=== PATIENT | male | born 1970 | race Caucasian/White ===

== ENCOUNTER 2024-06-01 09:03 | Inpatient (IN) | payer OTHER, SELFPAY ==
[2024-06-01] VITALS (33 sets, daily range): BP systolic 104–171; BP diastolic 36–116; BMI 33.5; BMI 32.6
[2024-06-01] MEDS: CARDIZEM 20 MG IV (05:24)
[2024-06-01] MEDS: CARDIZEM 125 IV ×2 (05:25→22:08)
[2024-06-01] MEDS: NSS 1000 IV (05:39)
[2024-06-01 05:47] LABS: % Basophils 0.6 % (0-2); % Eosinophils 3.1 % (0-6); % Immature Granulocytes 0.6 % (0-0.5); % Neutrophils 44.7 % (42.2-75.2); Absolute Eosinophils 0.2 10^3/uL (0-0.7); Absolute Lymphocytes 1.9 10^3/uL (1.2-3.4); Absolute Monocytes 0.6 10^3/uL (0.1-0.6); Absolute Neutrophils 2.2 10^3/uL (1.4-6.5); Hematocrit 46.3 % (39.0-52.0); Mean Corp Hgb Conc. 36.7 g/dL (33.0-37.0); Mean Corpuscular Hgb 34.1 pg (27.0-31.0); Mean Platelet Volume 9.8 fL (7.4-10.4); Nucleated Red Blood Cells % 0 % (-); Platelet Count 165 10^3/uL (130-400); Red Blood Cell Count 4.98 10^6/uL (4.70-6.10); Red Cell Dist. Width 11.6 % (11.5-14.5); White Blood Cell Count 4.9 10^3/uL (4.8-10.8)
[2024-06-01 06:08] LABS: ALT (SGPT) 138 U/L (0-50); AST (SGOT) 90 U/L (17-59); Albumin 4.3 g/dl (3.5-5.0); Alkaline Phosphatase 118 U/L (38-126); Blood Urea Nitrogen 11 mg/dl (9-20); Carbon Dioxide 18 mmol/L (22-30); Chloride 106 mmol/L (98-107); Estimated Creatinine Clearance > 125 ml/min; Glucose 220 mg/dl (70-99); Potassium 3.6 mmol/L (3.5-5.1); Sodium 142 mmol/L (135-145); Total Bilirubin 0.5 mg/dl (0.2-1.3); Total Protein 7.1 g/dl (6.3-8.2); eGFR > 60.00
[2024-06-01 06:15] LABS: Troponin I 0.013 ng/ml
--- NOTE | 2024-06-01 06:36 | ED.GENMED ---
History of Present Illness
General
Chief Complaint: Heart Rate Problem
Source: patient
Exam Limitations: none
Time Seen by Provider: 06/01/24 06:05
Nursing documentation reviewed up to this point in time: agreed with
History of Present Illness
History of Present Illness:
54-year-old male presents with palpitations fast heart rates, onset few hours ago he is a heavy drinker, states he had quite a bit of alcohol last evening, does not recall ever having fast heart rates previously, no chest pain no shortness of breath
no leg edema denies vomiting, he works in the restaurant industry denies any cocaine or other stimulant use
Past History
Past History
ED Past Medical History: Other (Peptic ulcer disease) and Other (Diverticulitis)
ED Past Surgical History: None
Patient has exhibited threatening behavior?: No
PSI?: No
Social History
Tobacco: Non-smoker
Alcohol: Daily
Drug: None
Personal:
Living: with family
Employment: Employed
Family History
Family History: Hypertension; Negative Diabetes, Early CAD, CAD, Asthma or Cancer
Review of Systems
Review of Systems
All Other Systems: Not applicable
Respiratory: Denies trouble breathing
Cardiac: Reports palpitations; Denies syncope
ABD/GI: Reports no symptoms
Musculoskeletal: Reports no symptoms
Neurological: Reports dizzy
Phy Exam
Physical Exam
Physical Exam:
Physical Exam
General: 54 male looks flushed cooperative
Neck: Lips are dry
Heart: Tachycardic
Lungs: no acute respiratory distress. clear bilaterally no wheezing
Abdomen: Nontender
Neuro: alert and oriented. no focal neurological deficits
Skin: no rash
Psychiatric: well kept. interactive and cooperative
Extremities: no edema.
Course
Orders/Labs/Results
Orders:
Orders
06/01/24 05:05
Electrocardiogram (*1) Urgent
Reason for Study: Tachycardia
EKG- Treatment ONCE
06/01/24 05:22
Diltiazem 125 mg/125 ml Nss [Cardizem] 125 mg in 125 ml .ROUTE .STK-MED
Diltiazem HCl [Cardizem] 25 mg .ROUTE .STK-MED ONE
06/01/24 05:24
Diltiazem HCl [Cardizem] 20 mg IV NOW STA
06/01/24 05:27
Complete Blood Count/With Diff Urgent
Comprehensive Metabolic Panel Urgent
Glycohemoglobin (HgbA1c) Urgent
Magnesium Urgent
Comment: ADD ON
Troponin I Urgent
06/01/24 05:30
Diltiazem 125 mg/125 ml Nss [Cardizem] 125 mg in 125 ml IV PER PROTOCOL
Initial dose in mg/hr, then titrate:: 5
Titrate to keep:: Heart rate 80-100 bpm
Titrate by mg/hr:: 5 mg/hr
Frequency of titrations (minutes):: 15
Maximum dose in mg/hr:: 15
06/01/24 05:39
0.9% Sodium Chloride 1000 ml [Nss] 1,000 ml IV BOLUS
06/01/24 06:16
Add On- LAB Urgent
Tests Added?: magnesium
CR Chest Portable - 1 View Urgent
Comment:
Reason For Exam: hr 150
Reason Study Needs to be Portable: Patient Unstable
06/01/24 06:36
Add On- LAB Urgent
Tests Added?: Hemoglobin A1c
06/01/24 07:21
Magnesium Sulfate 2 Gram/50 ml [Magnesium Sulfate] 2 gram in 50 ml IV NOW
06/01/24 07:22
Potassium Chloride [KCl] 40 meq PO NOW STA
Thiamine Injection 200 mg IV NOW STA
06/01/24 08:00
KCl 40 Meq/0.9%Sodchl 1000 ml [NSS with KCL 40 MEQ] 40 meq in 1,000 ml IV 200 mls/hr
06/01/24 08:35
Urine Drug Abuse Screen Routine
Heparin 4,000 units IV NOW STA
Pharmacy Request to Place See Dose Instructions PO NOW STA
Discontinue all Active Warfarin orders?: Yes
06/01/24 08:36
PTT Urgent
Comment: Obtain baseline before beginning heparin infusion if not already collected
Nursing to Place Non Medication Order As Directed
Physician Order: PTT 6 hours after initial start of Heparin infusion
06/01/24 08:45
Heparin 13845 Units/250 ml 25,000 units in 250 ml IV PER PROTOCOL
Weight to be used for heparin protocol in kilograms (kg):: 112
Protocol:: Cardiac Tx/Acute Coronary
PTT Goal Range to be used:: PTT 73 to 111 seconds
Order type:: Initial
INITIAL Infusion Dose (UNITS/KG/hr) & then follow protocol:: 12 units/kg/hr
Infusion Dose in UNITS/hr & then follow protocol (UNITS/hr):: 1,000
INFUSION RATE in mL/hr & then follow protocol (mL/hr):: 10
PTT less than or equal to 64 seconds:: Increase rate by 200 units/hr (+ 2 mL/hr)
PTT 64.1 to 72.9 seconds:: Increase rate by 100 units/hr (+ 1 mL/hr)
PTT 73 to 111 seconds:: Target Range. No change in rate.
PTT 111.1 to 130.9 seconds:: Decrease rate by 100 units/hr (- 1 mL/hr)
PTT 131 to 199.9 seconds:: HOLD for 1 hr. Then decrease rate by 200 units/hr (- 2 mL/hr)
PTT greater than or equal to 200 seconds:: HOLD for 2 hrs & Notify Provider. Then decrease by 200 units/hr (-
2 mL/hr)
Lab follow-up:: Each change, PTT q6h until 2 consecutive are therapeutic. Then PTT
daily.
06/01/24 09:[address] See Dose Instructions IV DIRECTED
Abnormal Lab Results
06/01/24
05:27
MCH 34.1 H pg
(27.0-31.0)
Immature Gran % 0.6 H %
(0-0.5)
Monocytes % 12.0 H %
(1.7-9.3)
Carbon Dioxide 18 L mmol/L
(22-30)
Glucose 220 H mg/dl
(70-99)
AST 90 H U/L
(17-59)
ALT 138 H U/L
(0-50)
06/01/24 05:27
06/01/24 05:27
Vital Signs
Initial and Last Documented VS:
Initial Vital Signs
Temp Pulse Resp BP Pulse Ox
97.8 F 164 22 158/114 97
06/01/24 05:02 06/01/24 05:02 06/01/24 05:02 06/01/24 05:02 06/01/24 05:02
Last Documented Vital Signs
Temp Pulse Resp BP Pulse Ox
97.8 F 119 14 133/102 96
06/01/24 05:02 06/01/24 07:30 06/01/24 07:30 06/01/24 07:30 06/01/24 07:30
MDM/Problems Addressed
Differential Diagnosis Includes:
A-fib SVT dehydration alcoholism
MDM/Problems Addressed:
Tachycardia alcoholism electrolyte abnormality
Chronic conditions affecting care:
Alcoholism
Acute Exacerbation and/or Progression of Chronic Illness:
Alcoholism
*Radiology
Radiology exam reviewed: preliminary read by ED provider
*Pulse Oximetry
Patient hypoxic: no
*EKG
Interpreted by ED Provider?: Yes
Interpretation: abnormal
Comparison EKG: no comparison EKG present
Heart Rate: 150
Rate: tachycardiac
Rhythm: a-fib
Ischemia: non-specific ST changes
*E Commerce Solution [employer] Interpretation
Rate: tachycardiac
Interpretation: abnormal
Heart Rate: 150
Rhythm: a-fib
*Critical Care Note
Total Time (30-74mins, 75-104mins- exclusive of procedures): 32
Update Note
Update Note:
Update, labs are noted electrolytes repleted still tachycardic, he is a heavy drinker it is unclear how much this is playing not confident on the onset to cardiovert electrically here message sent to cardiology and hospitalist, will start on heparin
unfractionated, also used sugars elevated will check A1c
ED Attending Note
-
Portions of this chart may have been created with voice recognition software.� Occasional wrong word or��sound alike� substitutions may have occurred due to the inherent limitations of voice recognition software.
Discharge Plan
Departure
Patient Disposition: Admit
Date of Disposition: 06/01/24
Time of Disposition: 08:37
Admit to: IVU
Presentation/result/management discussed w/ accepting MD/DO: Hospitalist
Patient with high blood pressure during this ER visit?: Yes
Condition: Fair
Discharge Problem:
Atrial fibrillation with RVR
Prescriptions:
No Action
docusate sodium [Dulcolax Stool Softener (dss)] 100 MG capsule
100 mg PO DAILY
Patient Comments:
taking to soften stool while taking percocet.
omeprazole magnesium [Prilosec OTC] 20 MG tablet,delayed release (DR/EC)
20 mg PO PRN PRN (Reason: heartburn)
acetaminophen 325 MG tablet
650 mg PO Q4HPRN PRN (Reason: mild pain/MCCABE/temp> 100.4F) Qty: 30 0RF
polyethylene glycol 3350 17 GRAMS powder in packet
17 grams PO DAILY Qty: 30 0RF
diclofenac potassium 50 mg tablet
50 mg PO BID Qty: 20 0RF
metaxalone 800 mg tablet
800 mg PO TID PRN (Reason: muscle pain) Qty: 14 0RF
amlodipine [Norvasc] 5 mg tablet
5 mg PO DAILY Qty: 30 0RF
Referrals:
Familia Slade DO [Family Provider] -
Interventions
Interventions:
*Risk Screen - Suicide Last Done: 06/01/24 05:02
*General Assessment Last Done: 06/01/24 05:30
*Neglect/Abuse Screening Last Done: 06/01/24 05:02
ED- Fall Risk Assessment Last Done: 06/01/24 05:32
*ED COVID-19 Vaccine History Last Done: 06/01/24 05:30
ED- Cardiac Assessment Last Done: 06/01/24 05:32
ED- Pulmonary Assessment Last Done: 06/01/24 05:32
Discharge Date and Time
Print Language: KISWAHILI
[2024-06-01 07:32] LABS: Magnesium 1.8 mg/dl (1.6-2.3)
[2024-06-01] MEDS: THIAMINE INJECTION 200 MG IV ×2 (07:42→20:15)
[2024-06-01] MEDS: NSS with KCL 40 MEQ 1000 IV (07:43)
[2024-06-01] MEDS: KCL 40 MEQ PO (07:43)
--- NOTE | 2024-06-01 08:30 | HPS.HSE ---
Family Physician
-
Family Physician: Familia Slade
Chief Complaint
-
Palpitations this morning
History of Present Illness
54 years old male presented from home. Patient woke up today and felt palpitations with some diaphoretic feeling. He asked his son to drive him to the hospital. No chest pain. He presented to the hospital was found to have atrial fibrillation
with rapid ventricular response. New onset. No previous history of heart disease. Patient has history of daily alcohol intake, significant amount. He denies withdrawal symptoms at present time. Negative troponin in the ER. He was started on IV
Cardizem and IV heparin.
Medical History
Past Medical History
Past Medical History: Reports Other (Alcohol and marijuana intake, gastroesophageal reflux disease, hypertension)
Past Surgical History: Reports Other (No recent major surgery)
Social History
Tobacco: Vaping
Drug: Marijuana
Personal: Single
Living: Other (He lives with his 2 sons)
Family History
Family History: Other (His mother recently of complications related to perforated bowel. His father age of 70s from heart attack)
Allergies / Home Medications
Allergies reflects when Allergies were last updated in [facility]
Home Medications with original date entered in [facility])
Allergy/Medication List:
Allergies
Allergy/AdvReac Type Severity Reaction Status Date / Time
erythromycin base Allergy Unknown Verified 06/01/24 05:05
[Erythromycin Base]
Home Medications
docusate sodium 100 mg capsule (Dulcolax Stool Softener (docusate)) 100 mg PO DAILY 03/07/20
omeprazole magnesium 20 mg tablet,delayed release (Prilosec OTC) 20 mg PO PRN PRN heartburn 03/07/20
acetaminophen 325 mg tablet 650 mg (2 x 325 mg) PO Q4HPRN PRN mild pain/MCCABE/temp> 100.4F #30 tabs 03/09/20
polyethylene glycol 3350 17 gram oral powder packet 17 grams PO DAILY #30 packets 03/09/20
amlodipine 5 mg tablet (Norvasc) 5 mg PO DAILY #30 tabs 09/08/22
diclofenac potassium 50 mg tablet 50 mg PO BID #20 tabs 09/08/22
metaxalone 800 mg tablet 800 mg PO TID PRN muscle pain #14 tabs 09/08/22
Review of Systems
-
History Source: Patient
A 12 point ROS was completed and negative except as noted: Yes
Constitutional: Denies Fever
EENT: Denies Sore Throat
Respiratory: Denies Cough
Cardiac: Reports Palpitations; Denies Chest Pain
Abdomen/GI: Denies Abdominal Pain
: Denies Dysuria
Musculoskeletal: Denies Joint Pain
Skin: Denies Rash
Neurological: Denies Numbness
Endocrine: Denies Temp Intolerance
Psych: Denies Panic Disorder
Physical Exam
Vital Signs
Vital Signs
Temp Pulse Resp BP Pulse Ox
97.8 F 119 14 133/102 96
06/01/24 05:02 06/01/24 07:30 06/01/24 07:30 06/01/24 07:30 06/01/24 07:30
Physical Exam
General: No Apparent Distress, Comfortable and Obese
HEENT: Moist mucous membranes and Atraumatic
Respiratory: Clear; No Wheezes
Cardiac: S1/S2, Irregular Rhythm and Tachycardia
GI: Soft and Non Tender
Genito-urinary: No costovertebral tender
Musculoskeletal: No Clubbing, No Cyanosis and No Edema
Skin: Warm; No Jaundice
Neuro: AO x 3 and Nonfocal/grossly intact; No Tremors
Psych: Calm and Intact Judgment/Insight
Laboratory Results
-
06/01/24 05:27
06/01/24 05:27
Laboratory Results
Total Bilirubin 0.5 mg/dl (0.2-1.3) 06/01/24 05:27
AST 90 U/L (17-59) H 06/01/24 05:27
ALT 138 U/L (0-50) H 06/01/24 05:27
Alkaline Phosphatase 118 U/L (38-126) 06/01/24 05:27
Troponin I 0.013 ng/ml 06/01/24 05:27
Impression/Plan
-
54 years old male presented with palpitation was found to have uncontrolled atrial fibrillation
#Atrial fibrillation with rapid ventricular response, new onset.
Admit the patient to telemetry/IV
He felt palpitation. No chest pain. Troponin 0.013
No hypoxia
Start the patient on intravenous Cardizem.
Start intravenous metoprolol with holding parameters
Start the patient on intravenous heparin with monitoring of PTT
[id number] around 1 for hypertension
Order echocardiogram
Order chest x-ray, proBNP
Consult cardiology, input appreciated
# History of daily alcohol intake/marijuana use
Patient admitted to daily alcohol intake and marijuana for recreational use
No history of withdrawal in the past. He denies feeling anxious at present
Start the patient on high-dose thiamine
He was made of possibility of withdrawal
Urine drug screen
Will add alcohol withdrawal protocol
# Primary hypertension, he will be on intravenous Cardizem and metoprolol for now.
# History of perforated gastric ulcer more than 20 years ago
Will continue with IV heparin. No history of black stools or recent GI bleed
# Obesity
Total time spent to see the patient, examine the patient, review data and lab results, discuss treatment plan with patient, ER doctor and nursing staff around 75 minutes
--- NOTE | 2024-06-01 09:51 | CON.CAR ---
Consultation
Consultation Request
Date/Time Consultation Requested: 06/01/24 09:05
Date/Time Consultation Performed: 06/01/24 09:30
Requesting Provider: Heidy Kahn MD
Performing Provider: Justyn Vitale MD
Reason for Consultation: afib
Medical History
-
Chief Complaint: palpitations
History of Present Illness:
54-year-old man who denies past medical history presents with palpitations. He states that he woke up around 3�4 AM feeling anxious and like his heart was racing. He has never had an episode like this before. He decided to present to the ""hospital. He is sure that this started this morning. He felt like his normal self yesterday. He has never been diagnosed with a medical problem and takes no medications regularly but notes that when he was here for a kidney stone his blood
pressure was elevated. He drinks at least a sixpack of beer daily. He is a never smoker. Uses occasional marijuana. He wakes up with a dry mouth and thinks he snores but has never been diagnosed with sleep apnea. In the ER vital signs were
notable for heart rate 150s on arrival. He was started on diltiazem drip and heart rates are now in the 110s�120s. Blood pressures are 120s�130s/90s�100s.
Past Medical History
Past Medical History: None
Social History
Tobacco: Non-Smoker
Alcohol: Daily (6 pack)
Drug: Marijuana (rare)
Employment: Employed (owns a restaurant)
Family History
Family History: Reviewed & Not Pertinent
Allergies / Home Medications
Allergy/AdvReac Type Severity Reaction Status Date / Time
erythromycin base Allergy Unknown Verified 06/01/24 05:05
[Erythromycin Base]
�Medication �Instructions �Recorded �Confirmed �Type
acetaminophen 325 mg tablet 650 mg PO DAILYPRN PRN mild pain 06/01/24 06/01/24 History
(Tylenol)
therapeutic multivitamin 1 tab PO DAILY 06/01/24 06/01/24 History
Review of Systems
-
History Source: Patient
All other systems: Negative unless noted
Physical Exam
Vital Signs
Temp Pulse Resp BP Pulse Ox
97.8 F 119 14 133/102 96
06/01/24 05:02 06/01/24 07:30 06/01/24 07:30 06/01/24 07:30 06/01/24 07:30
Lab Results
06/01/24 05:27
06/01/24 05:27
Troponin I 0.013 ng/ml 06/01/24 05:27
Physical Exam
General: Well Developed and Well Nourished
Respiratory: Clear
Cardiac: S1/S2 and Regular Rhythm (fast rate); Negative Murmur, Rub or Peripheral Edema
Musculoskeletal: No Edema
Neuro: AO x 3
Impression / Plan
-
54-year-old man with daily alcohol use and no significant past medical history presents with new onset atrial fibrillation with RVR.
Global Implementation Manager: None
Atrial fibrillation with RVR
-Continue diltiazem for rate control. If he remains in atrial fibrillation tomorrow, we will perform synchronized cardioversion. He is certain that his symptoms started this morning so he has been in atrial fibrillation for less than 24 hours and
does not need AILYN prior to cardioversion
-Keep n.p.o. past midnight
-[id number] likely 1 for previously undiagnosed hypertension
-Start apixaban 5 mg twice daily for anticoagulation and ask case management for pricing
-Echocardiogram today
-In terms of risk factor modification, he will need alcohol cessation which we discussed. Sleep study as an outpatient. Weight loss recommended.
Elevated blood pressure
-Monitor with diltiazem
-Will likely need antihypertensive on discharge
Data Reviewed
-
EKG: Tracing Personally Visualized and interpreted, Discussed with Physician and Discussed with Patient
Medical Tests (Nuc Med, Echo etc): Discussed with Patient and Other (ordered by me)
Labs: Labs Reviewed by me and Discussed with Patient
Old Records: Reviewed
[2024-06-01] MEDS: MAGNESIUM SULFATE 50 IV (09:57)
[2024-06-01 10:12] LABS: NT-proBNP 37.7 pg/ml
[2024-06-01 10:18] LABS: Glycohemoglobin (HgbA1c) 5.6 % (4.0-5.6)
[2024-06-01] MEDS: ELIQUIS 5 MG PO ×2 (11:13→20:14)
--- NOTE | 2024-06-01 11:47 | CM ---
ED CM met with pt and son/Saul bedside
Pt resides with his two sons Saul/21 and Mati/23 in a 2[address]
3STE through front and 2 JEMAL through garage
8+8 steps up to 2nd floor
Pt is indep with his ADLs
Denies use of DMEs
PCP- Familia Slade, has not seen in a few years, in agreement with [facility] info
Rx- [facility]
Pt is uninsured, had [facility] plan at some point and was dropped, reason unknown
[facility]
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
Pt with frequent ETOH use and CM consult for D/A resources
Pt declined [facility] referrals but in agreement with their info dc should he want to reach out later
CM also consulted for cardiac med pricing
Call with local [facility]
Eliquis 5 mg BID generic $709 30 days chow yoon
Xarelto 20mg QD geenric $661 30 days chow yoon
Pt unable to afford chow yoon
Discussion with Dr Franklin- CM to provide 30 day Eliquis coupon on dc
Assistance program info provided to pt
CM to follow up on pt's outcome of assistance program application
Son's Saul and Mati to be added as contacts
Brother will remain primary- not POA
Update to admissions
Discharge Disposition- home, will need Eliquis 30 day card, [facility] brochure, [facility] info on dc
[2024-06-01 12:46] LABS: Amphetamines Negative (Negative); Barbiturates Negative (Negative); Benzodiazepines Negative (Negative); Buprenorphine Negative (Negative); Cocaine Negative (Negative); Methadone Negative (Negative); Methamphetamines Negative (Negative)
[2024-06-01 12:47] LABS: Marijuana Positive (Negative); Opiates Negative (Negative); Phencyclidine Negative (Negative); Tricyclic Antidepressants Negative (Negative)
[2024-06-01] MEDS: NSS with KCL 40 MEQ IV ×2 (13:04→19:25)
[2024-06-01] MEDS: LOPRESSOR 12.5 MG PO ×2 (13:12→18:40)
--- NOTE | 2024-06-01 18:49 | PTCARENOTE ---
Addendum entered by Saadia Garcia RN 06/01/24 19:02:
Dr Kahn confirmed no need for IVF.
Original Note:
Received patient on admission from ED via stretcher at approximately 18:11 with Cardizem infusing at 15mg/hr. BP 143/109, HR low 100s. Per MAR, patient due for lopressor 12.5mg po, which was given, and NSS with 40meq KCL to be infused at 200ml/hr.
TT sent to pharmacist Lindsay requesting IVF be sent to unit; she suggested reaching out to provider to see if IVF are to continue at that rate as the previous RN in ED documented not given d/t 'order complete.' Patient did not arrive with IVF
infusing. TT sent to Dr Kahn with oncoming night RN copied in.
Patient Ox3, steady gait; denies palpitations, CP, dizziness. MSAS =2 d/t HR.
--- NOTE | 2024-06-01 20:30 | PTCARENOTE ---
pt received from previous RN. Pt AAOx3. Ordered MSAS assessment maintained. See intervention. Pt calm and agreeable to care. Afib on monitor, rate controlled 80-100, Pt on ordered Cardizem gtt, see MAR. sats 98% on RA. Steady gait when ambulating to
the restroom, HR stays below 100 with ambulation, Pt denies any dizziness with changes in position. Assessment as documented, call light in reach.
--- NOTE | 2024-06-01 20:36 | W.PN.UPDATE ---
Addendum entered and electronically signed by ANDREW Liu 06/02/24 03:08:
Around 2:30 am, Patient woke from sleep c/o center chest tightness with breathing in and out. Denies sharp, shooting pain. Denies that pain is radiating. Patient is also anxious and on MSAS for ETOH w/d. EKG showed afib w/RVR and new incomplete
RBBB. RN administered Ativan for MSAS score of 5. Ordered repeat troponin and mag out of an abundance of caution. Patient remains on Cardizem gtt, now at 10 mg/hr (previously at 15 mg/hr).
Original Note:
Update Note
Progress Note Update
Asked to see patient regarding code status. Reviewed code status and intervention(s) that would/wound not be done with each. Patient confirmed he is FULL CODE.
--- NOTE | 2024-06-01 20:40 | PTCARENOTE ---
upon receiving pt at start of shift pt had no had a code status ordered. This RN reached out to Roxane MORALES. Order received for code status. Pt is a full code.
[2024-06-01] MEDS: ATIVAN 1 MG PO (22:07)
[2024-06-02] VITALS (8 sets, daily range): BP systolic 104–128; BP diastolic 73–106
[2024-06-02] MEDS: LOPRESSOR 12.5 MG PO ×2 (00:31→06:03)
[2024-06-02] MEDS: ATIVAN 1 MG PO (02:31)
--- NOTE | 2024-06-02 03:00 | PTCARENOTE ---
Addendum entered by Taiwo Snow RN 06/02/24 06:42:
No other changes overnight, Pt HR remained controlled. Po admits to some relief after Po Ativan. Discomfort has not increased in the chest. Ordered labs sent.
Original Note:
Pt called RN c/o center of chest tightness. Describes it as 'feeling light he pulled a muscle', pt admits to discomfort with breaths. Denies pain on the left left side of chest or left arm, denies sharp pain. pt admits to increased anxiety. MSAS
scoring a 5. pt given ordered PO ativan per order, see JUL. EKG done. results sent to [facility]. Order received for AM mag level and troponin.
[2024-06-02 04:59] LABS: Magnesium 2.3 mg/dl (1.6-2.3)
--- NOTE | 2024-06-02 06:35 | W.PN.HOSP.TC ---
Addendum entered and electronically signed by Heidy Kahn MD 06/02/24 13:35:
Addendum
Pt was seen by cardiology, remains in SR and stable, wants to go home
d/w host/hostess for dc medications
Total discharge time spent to see the patient, examine the patient, review data and lab results, discuss discharge plan with patient, host/hostess, and nursing staff around 65 minute
Original Note:
Today's Communication/Plan
-
Likely dc today
Change to oral pills, and f/w cardiology recommendations
Assessment / Plan
Assessment / Plan
Physical Exam
General: No Apparent Distress, Comfortable and Obese
HEENT: Moist mucous membranes and Atraumatic
Respiratory: Clear; No Wheezes
Cardiac: S1/S2, Irregular Rhythm and Tachycardia
GI: Soft and Non Tender
Genito-urinary: No costovertebral tender
Musculoskeletal: No Clubbing, No Cyanosis and No Edema
Skin: Warm; No Jaundice
Neuro: AO x 3 and Nonfocal/grossly intact; No Tremors
Psych: Calm and Intact Judgment/Insight
54 years old male presented with palpitation was found to have uncontrolled atrial fibrillation
#Atrial fibrillation with rapid ventricular response, new onset. Paroxysmal. Likely triggered by ETOH intake
Doing better, now in SR
Wean off Cardizem gtt to oral medications, tolerated metoprolol.
[id number] around 1 for hypertension, started on Eliquis.
Echo on 06/01 showed LVEF 75%, normal valves.
No significant abnormalities of Order chest x-ray, proBNP
Consulted cardiology, input appreciated
# History of daily alcohol intake/marijuana use
Does not seem in DT
Lucid, oriented X3
c/w withdrawal protocol, high dose Thiamine.
# Primary hypertension, better controlled.
# History of perforated gastric ulcer more than 20 years ago
No history of black stools or recent GI bleed
# Obesity
Total time spent to see the patient, examine the patient, review data and lab results, discuss treatment plan with patient, and nursing staff around 55 minutes
Anticipated Discharge: Today
Subjective/Interval History
-
Date of Service: June 02, 2024
He feels better
does not feel anxious this morning
Objective Data
-
Vital Signs:
Vital Signs
Temp Pulse Resp BP Pulse Ox
98.6 F 90 9 128/97 99
06/02/24 02:37 06/02/24 06:03 06/02/24 02:42 06/02/24 06:03 06/02/24 04:10
[2024-06-02] MEDS: THIAMINE INJECTION 200 MG IV (08:16)
[2024-06-02] MEDS: ELIQUIS 5 MG PO (08:16)
[2024-06-02] MEDS: CARDIZEM CD 240 MG PO (09:35)
[2024-06-02] MEDS: TOPROL XL 50 MG PO ×2 (09:35→10:44)
--- NOTE | 2024-06-02 09:40 | W.PN.CD ---
Today's Communication / Plan
-
Discharge medications: Metoprolol succinate 100 mg daily, apixaban 5 mg twice daily
Alcohol cessation
Outpatient sleep study
Our office will schedule follow-up in the next 2-4 weeks.
Impression / Plan
-
54-year-old man with daily alcohol use and no significant past medical history presents with new onset atrial fibrillation with RVR, now back in sinus rhythm.
Compliance Attorney: None
Atrial fibrillation with RVR, resolved
-Echo this admission with normal BiV function and no valvular disease
-He converted back to sinus rhythm on diltiazem drip. Stop diltiazem infusion and transition to p.o. beta-benton
-Continue metoprolol 100 mg daily. He will need this on discharge.
-[id number] likely 1 for previously undiagnosed hypertension
-Continue apixaban 5 mg twice daily for anticoagulation. He should continue this for at least 1 month given chemical cardioversion. After that we can have a risk/benefit discussion in the office given his [id number] 1
-In terms of risk factor modification, he will need alcohol cessation which we discussed. Sleep study as an outpatient. Weight loss recommended.
Elevated blood pressure
-Continue metoprolol 100 mg daily as above.
-Up titration of antihypertensives as an outpatient.
Subjective: Feels well this morning. Asymptomatic. Telemetry reveals that atrial fibrillation broke around 5 AM.
Physical Exam
Vital Signs/Labs
Vital Signs
Temp Pulse Resp BP Pulse Ox
98.2 F 85 14 120/89 95
06/02/24 07:00 06/02/24 09:35 06/02/24 06:05 06/02/24 09:35 06/02/24 06:05
06/01/24 06/02/24 06/03/24
06:59 06:59 06:59
Actual Weight 112 kg 108.9 kg
06/01/24 05:27
06/01/24 05:27
APTT Cancelled 06/01/24 09:57
Magnesium 2.3 mg/dl (1.6-2.3) 06/02/24 04:24
06/01/24 06/01/24
05: 09:14
Nqr-[id number]-[id number] Pept 37.7 Cancelled
LAB Results
06/01/24 06/02/24
05 04:24
Troponin I 0.013 0.030
Physical Exam
Constitutional: No acute distress and Comfortable
Cardiovascular: Rhythm & rate is regular, Pedal edema is absent, S1S2 is normal and Murmur/rub/gallop absent
Respiratory: Respiratory effort normal and Lungs clear to auscul.
Neuro/Psych: AO x 3
Data Reviewed
-
Date of Service: June 02, 2024
Medical Decision Making: Reviewed Test Results, Independent Historian Assessment, Test Interpretation and Review of Case with other Provider
EKG: Tracing Personally Visualized and interpreted
Echo: Tracing Personally Visualized and interpreted
Labs: Labs Reviewed by me
--- NOTE | 2024-06-02 09:43 | PTCARENOTE ---
Addendum entered by Saadia Garcia RN 06/02/24 09:48:
Toprol xl dose being increased to 100mg po per Dr Vitale; now dose of 50mg po added to morning dose. Await pharmacy verification.
Original Note:
Assumed care of patient at beginning of this shift from previous RN with cardizem infusing at 5mg/hr. Monitor showed SR. Dr Vitale made aware; cardizem Cd 240mg ordered po and infusion d/c'd, and toprol xl 50mg po ordered. Patient did receive
lopressor 12.5mg po at 06:03; confirmed with Dr Moran that patient may receive new order of toprol xl this morning, med given as ordered. Also instructed patient may have regular diet; patient updated.
--- NOTE | 2024-06-02 11:54 | W.DCSUMMARY ---
Discharge Summary
Discharge Data
Date of Admission: 06/01/24
Date of Discharge: 06/02/24
-
Pending Results: No
Hospital Course
54 years old male presented with palpitations. Patient was found to have atrial fibrillation with rapid ventricular response. He was admitted to the hospital received intravenous Cardizem and heparin. Patient was evaluated by maternal fetal physician.
Echocardiogram showed normal valvular structure with left ventricular ejection fraction around 75%, hyperdynamic. Patient started on oral medication including metoprolol. He converted back to sinus rhythm. Heparin was discontinued he was started
on Eliquis twice a day. Patient was counseled regarding potential risk of substance use including alcohol and marijuana. Patient was strongly encouraged to avoid alcohol intake while on systemic anticoagulation. Patient verbalized understanding.
Patient remained oriented and lucid and did not have signs of delirium tremens. He was anxious and was given Ativan. Patient remained hemodynamically stable and was discharged home in a stable condition.
Discharge Plan
-
Patient Disposition: Home (Routine Discharge)
Discharge Diagnosis/Procedures: - Paroxysmal atrial fibrillation
Back to sinus rhythm. You were seen by maternal fetal physician and started on new medications
1- Toprol, beta-benton, regulate heart and control blood pressure. Possible side effects include bradycardia, hypotension, fatigue.
2- Eliquis, blood thinner, systemic anticoagulation. Potential side effect is bleeding, avoid falls and alcohol intake.
-Daily alcohol use, recommend strongly to avoid alcohol intake with Eliquis due to risk of gastrointestinal bleeding. Continue with Thiamine for one month only.
Diet: As tolerated
Referrals:
Justyn Vitale MD [Active] - in two to three weeks
Familia Slade DO [Family Provider] -
Prescriptions:
New
thiamine HCl (vitamin B1) 100 mg Tablet
100 mg PO DAILY Qty: 30 0RF
Eliquis 5 mg Tablet
5 mg PO BID Qty: 60 0RF
metoprolol succinate [Toprol XL] 100 mg tablet extended release 24 hr
100 mg PO DAILY Qty: 30 0RF
Continued
acetaminophen [Tylenol] 325 mg Tablet
650 mg PO DAILYPRN PRN (Reason: mild pain)
therapeutic multivitamin Tablet
1 tab PO DAILY
Discharge Orders:
Discharge Patient (As Directed); Ordered 06/02/24
Ordered By: Heidy Kahn
Discharge Date and Time
Discharge Date/Time: 06/02/24 13:32
Print Language: UKRAINIAN
== END 2024-06-02 13:32 | disposition home or self-care (01) | DRG 310 ==
LOC: IMU 09:03
PROVIDERS: Emergency Medicine; Nurse Practitioner Family; ADMITTING PHYSICIAN Internal Medicine; CONSULT PHYSICIAN Student in an Organized Health Care Education/Training Program; EMERGENCY PHYSICIAN Emergency Medicine; FAMILY PHYSICIAN Family Medicine
DX: I48.0 Paroxysmal atrial fibrillation (principal); E66.9 Obesity, unspecified; I10 Essential (primary) hypertension; F10.10 Alcohol abuse, uncomplicated; F12.90 Cannabis use, unspecified, uncomplicated; Z79.01 Long term (current) use of anticoagulants; Z68.32 Body mass index [BMI] 32.0-32.9, adult; Z87.11 Personal history of peptic ulcer disease
CPT/HCPCS: 71045; 80053; 80306; 83036; 83735; 83880; 84484; 85025; 93005; 93306; 96361; 96374; 96375; 99291